=== PATIENT | male | born 1955 | race Caucasian/White ===

== ENCOUNTER 2025-02-28 14:00 | Day surgery (SDC) | payer BC, OTHER ==
--- NOTE | 2025-02-27 14:15 | ELECTROCARDIOGRAPH REPORT ---
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 MASON Samayoa Measurements Intervals Story Rate: 59 P: 9 OR: 166 QRS: -8 QRSD: 95 T: 58 QT: 422 QTc: 418 Interpretive Statements Sinus bradycardia Borderline ST elevation, anterior leads Electronically Signed On 02-27-2025 17:11:[address] MASON Samayoa Please click the below link to view image of tracing.
[2025-02-27 14:16] LABS: MEAN PLATELET VOLUME 7.5 FL (7.4-10.4); PRE OP HEMATOCRIT 41.4 % (42.0-52.0); PRE OP HEMOGLOBIN 13.9 g/dL (14.0-17.9); PRE OP PLATELET COUNT 193 X10'3 (140-440); PRE OP WHITE BLOOD COUNT 4.9 10'3 (4.8-10.8); RED CELL DISTRIBUTION WIDTH 13.7 % (11.5-14.5)
[2025-02-27 14:52] LABS: CREATININE 0.75 MG/DL (0.60-1.10); PRE OP ALT 19 U/L (30-65); PRE OP ANION GAP 6 (8-16); PRE OP AST 23 U/L (10-37); PRE OP BILIRUB, TOTAL 0.8 MG/DL (0.0-1.0); PRE OP GLUCOSE 149 MG/DL (70-104); PRE OP POTASSIUM 4.1 MMOL/L (3.4-5.1); PRE OP SODIUM 141 MMOL/L (135-145); TOTAL CARBON DIOXIDE 31.2 MMOL/L (24-32); eGFR > 90 ML/MIN
[2025-02-28] VITALS (8 sets, daily range): BP systolic 106–154; BP diastolic 63–110; PULSE 55–71; RESP 10–16; TEMP 98.1; O2SAT 96–98
[~2025-02-28] VITALS: Ht 195.6 cm; Wt 91.4 kg
[2025-02-28] MEDS: ceFAZolin 2gm/dext,iso 50mL 50 ML IV ONE (05:30)
[~2025-02-28 14:00] MED LIST: BUPIVAcaine 2.5mg/ml inj 50ml vial (contains preservative) ONE; LIDOcaine 1% 30ml preserv. free vial ONE; NO HOME MEDS
[2025-02-28] MEDS: ringers solution, lacted 1,000 ML IV SCH (14:45)
--- NOTE | 2025-02-28 16:19 | HISTORY AND PHYSICAL ---
History & Physical Providers to CC CC: SANDRA INGRAM MD ~ History of Present Illness Reason for Admit\Complaint: Right inguinal hernia History of Present Illness Patient here today for elective repair of a right inguinal hernia In November he noticed a lump/bulge in the right groin and the attributed to hauling some firewood. Since then he has been wearing an inguinal hernia truss that is somewhat helped with keeping it and. He has some minor discomfort when contents are herniated He is not had any other significant issues He does not endorse any change in bowel or bladder habit He is quite active and is eager to have this repaired and so he can get back to his normal level of activity. 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 Maintenance Follows with a local [facility] Affairs ROS ROS Reviewed and negative with the exception of those found in the history of present illness Exam Vitals: Vital Signs Date Time Temp Pulse Resp B/P (MAP) Pulse Ox O2 Delivery O2 Flow Rate FiO2 02/28/25 14:10 98.1 55 16 154/74 (100) 97 Room Air General: 70-year-old male in no acute distress HEENT: With a normal limits No scleral icterus or conjunctival injection Neck: Supple and nontender Chest: Lungs are clear to auscultation bilaterally Cardiovascular: Regular rate and rhythm without murmurs Abdomen: Soft and nondistended Visible mass in the right inguinal region with the associated cough impulse Extremities: Well-perfused without edema Central Nervous System: Grossly intact Musculoskeletal: 5/5 strength in all four extremities Skin: Warm and dry Diagnostic Data Last Recorded Lab Results: 02/27/25 1408 02/27/25 1408 Counseling Services Smoking & Tobacco Cessation: N/A Problems: (1) Right inguinal hernia Status: Chronic Assessment & Plan: The risks, benefits, and alternatives to a robotic assisted, laparoscopic right possible left inguinal hernia repair with mesh were discussed with the patient. Risks include, but are not limited to, bleeding, infection, injury to intra-abdominal structures, hernia recurrence and chronic postoperative pain. Patient verbalized understanding and wishes to proceed with surgery. We will do so today as scheduled SANDRA INGRAM MD Feb 28, 2025 16:19
[2025-02-28] MEDS ORDERED: glycopyrrolate 0.2mg/ml inj ONE (16:30)
[2025-02-28] MEDS ORDERED: propofol inj 20 ML IV ONE (16:54)
[2025-02-28] MEDS ORDERED: fentaNYL/PF 50MCG/1 ML 2ML syringe ONE (16:54)
[2025-02-28] MEDS ORDERED: LIDOcaine 1%/PF 5ML 10 MG/ML VIAL ONE (16:54)
[2025-02-28] MEDS ORDERED: ondansetron/PF 4mg/2ml inj ONE (16:56)
[2025-02-28] MEDS ORDERED: dexamethasone sod phosphate 4mg/ml inj. ONE (16:56)
[2025-02-28] MEDS ORDERED: rocuronium 10mg/ml inj IV ONE (16:58)
[2025-02-28] MEDS: BUPIVAcaine/PF 2.5 mg/ml (0.25%) 30ml vial IJ ONE (17:04)
[2025-02-28] MEDS: LIDOcaine 1% 30ml preserv. free vial IJ ONE (17:04)
[2025-02-28] MEDS ORDERED: ringers solution, lacted 1,000 ML IV SCH (17:10)
[2025-02-28] MEDS ORDERED: labetalol 20mg/4ml (5mg/ml) syringe IV PRN (17:10)
[2025-02-28] MEDS ORDERED: fentaNYL/PF 50MCG/1 ML 2ML syringe IV PRN ×2 (17:10)
[2025-02-28] MEDS ORDERED: morphine 4 MG/ML inj SYRINge IV PRN ×2 (17:10)
[2025-02-28] MEDS ORDERED: hydrALAZINE 20mg/ml inj. IV PRN (17:10)
[2025-02-28] MEDS ORDERED: ePHEDrine 50MG/ML INJ. ONE (17:16)
[2025-02-28] MEDS ORDERED: HYDROcodone/acetaminophen 5mg/325mg tablet PO PRN (18:00)
--- NOTE | 2025-02-28 18:05 | OPERATIVE REPORT ---
Operative Report Providers to CC CC: EAGLE INGRAM MD ~ Date of Procedure: Feb 28, 2025 Pre-Operative Diagnosis: Right inguinal hernia Post-Operative Diagnosis SAME as PRE-Op Procedure Performed Robotic assisted, laparoscopic right inguinal hernia repair with mesh Surgeon: Eagle Ingram MD FACS Cow Trimmer None Anesthesiologist: Clint Brown Type of Anesthesia: General Findings: [id number] indirect right inguinal hernia Wound class I Complications None Prosthetics\Implants used: Extra-large right Dextile mesh Estimated Blood Loss: Minimal Specimen Removed: None Description of Procedure: Patient was brought to the operating room and identified by the nursing staff and the attending physician. Patient was placed supine and general anesthesia was induced. Patient's abdomen was prepped and draped in standard sterile fashion. Preoperative antibiotics were given. Supraumbilical incision was made to allow for standard Molina entry technique. Laparoscope was inserted after insufflation. Bilateral, 8.5 mm robotic trochars were placed under laparoscopic guidance following administration of local anesthetic. The TRAFFIQ robotic arm was docked to the patient and instruments placed intra-abdominally under laparoscopic visualization. The left hemipelvis was examined and showed no evidence of left inguinal hernia. An indirect hernia was identified on the right side. Hernia sac was moderate in size. A rent was created in the peritoneum from the median umbilical fold and carried out laterally towards the anterior superior iliac spine. Preperitoneal flap was created and carried down to the symphysis pubis. The retropubic space of Retzius was developed and the bladder swept medially. Dissection was carried out laterally until an indirect hernia sac was identified. This was modera te-to-large in size. Hernia sac was completely dissected away from the cord structures and reduced. The critical view of the myopectineal orifice was achieved. Dissection was carried out laterally to allow space for mesh deployment. An extra- large, Dextile mesh and suture was passed intra-abdominally. Mesh was laid in the preperitoneal space covering both indirect, direct, and potential femoral and obturator hernias. Mesh laid without wrinkles or folds. 3 tacking sutures using 0 Ethibond were used to fix the mesh at the symphysis pubis, rectus abdominis, and just anterior to the anterior superior iliac spine. The peritoneal rent was then closed with running, 2/0, absorbable locking suture. Horatio were retrieved. Abdomen was deflated and secondary trochars removed. Fascia at the umbilical port site was closed with 0 Vicryl sutures. Skin incisions were closed with 4-0 Monocryl sutures in a subcuticular fashion. Sterile dressings were applied. Patient was awakened and taken to the postanesthesia care unit in stable condition. Counts repoted as correct: Yes EAGLE INGRAM MD Feb 28, 2025 18:05
[2025-02-28] MEDS: ondansetron/PF 4mg/2ml inj IV PRN (19:07)
== END 2025-02-28 19:36 | disposition home or self-care (01) ==
LOC: PAS 14:00
PROVIDERS: ATTEND Surgery
DX: K40.90 Unilateral inguinal hernia, without obstruction or gangrene, not specified as recurrent (principal); I48.91 Unspecified atrial fibrillation; Z96.651 Presence of right artificial knee joint
CPT/HCPCS: 36415; 49650; 80053; 82948; 85025; 93005; C1781; J1100; J2003; J2405; J2704; J2710; J3010; J3490; J7030; J7120; S2900; Z7506; Z7508; Z7512; A4215; A4618